=== PATIENT | female | born 1970 | race Caucasian/White ===

== ENCOUNTER → 2018-09-03 09:49 | Outpatient (CLI) | payer OTHER, SELFPAY ==
[2018-09-03 09:58] LABS: RBC Urine None Seen (0-5/HPF)
[2018-09-03 11:26] LABS: Add Manual Diff / Slide Review NO; Basophils Absolute Auto 100 /uL (0-100); Basophils Percent Auto 0.7 % (0-2); Eosinophils Absolute Auto 100 /uL (0-450); Eosinophils Percent Auto 1.9 % (2-4); Hematocrit 41.2 % (36-46); Hemoglobin 13.5 g/dL (12.0-16.0); Lymphocytes Absolute Auto 1800 /uL (1100-4500); Lymphocytes Percent Auto 23.2 % (25-40); Mean Corpuscular HGB Conc 32.8 % (30-36); Mean Corpuscular Volume 94.5 fL (80-100); Monocytes Absolute Auto 700 /uL (0-900); Monocytes Percent Auto 9.3 % (3-14); Neutrophils Absolute Auto 5100 /uL (1500-7000); Neutrophils Percent Auto 64.9 % (50-75); Platelet Count 266 X10^3/uL (150-400); Red Blood Cell Count 4.36 X10^6/uL (4.0-5.2); Red Cell Distribution Width 13.4 % (11.6-14.8); White Blood Cell Count 7.8 X10^3/uL (4.5-11.0)
[2018-09-03 11:38] LABS: Alanine Aminotransferase 244 IU/L (9-52); Albumin 4.3 g/dL (3.5-5.0); Albumin Globulin Ratio 1.2 (1.0-2.8); Alkaline Phosphatase 89 U/L (38-126); Aspartate Aminotransferase 172 IU/L (14-36); Bilirubin Total 0.6 mg/dL (0.2-1.3); Blood Urea Nitrogen 12 mg/dL (7-17); Calcium 8.9 mg/dL (8.4-10.2); Carbon Dioxide 28 mmol/L (22-32); Chloride 106 mmol/L (98-107); Cholesterol 189 mg/dL (140-199); Estimated Glomerular Filt Rate > 60.0 mL/min (>60); Globulin 3.7 g/dL (1.7-4.1); Glucose 100 mg/dL (70-100); HDL Cholesterol 55 mg/dL (40-60); HEMOLYSIS 18 (0-50); LDL Cholesterol Calculated 122 mg/dL (<100); Potassium 3.9 mmol/L (3.4-5.1); Sodium 143 mmol/L (137-145); Triglycerides 62 mg/dL (35-150)
[2018-09-03 12:47] LABS: Appearance Urine UA CLEAR; Bilirubin Urine UA NEGATIVE (NEGATIVE); Color Urine UA YELLOW; Glucose Urine UA NEGATIVE (Negative); Ketones Urine UA NEGATIVE (NEGATIVE); Leukocyte Esterase Urine UA TRACE (NEGATIVE); Nitrite Urine UA NEGATIVE (Negative); Occult Blood Urine UA NEGATIVE (Negative); Protein Urine UA NEGATIVE (Negative); Specific Gravity Urine UA 1.025 (1.000-1.035); Urobilinogen Urine UA 0.2 E.U./dL (0.2)
[2018-09-03 12:56] LABS: Bacteria Urine Few (2-10); Culture Indicated Urine Cult Not Indicated; Squamous Epithelial Cell Urine 5-10 /HPF; WBC Urine 1-5/HPF (0-5/HPF)
[2018-09-03 13:09] LABS: Vitamin D 25 Hydroxy (D3) 25.7 ng/mL (30.0-100.0)
== END ==
PROVIDERS: PCP Student in an Organized Health Care Education/Training Program; Visit Provider Student in an Organized Health Care Education/Training Program
DX: R10.9 Unspecified abdominal pain (principal); M17.0 Bilateral primary osteoarthritis of knee; Z13.220 Encounter for screening for lipoid disorders; E55.9 Vitamin D deficiency, unspecified
CPT/HCPCS: 36415; 80053; 80061; 81001; 82306; 85025

== ENCOUNTER → 2018-12-03 15:36 | Outpatient (CLI) | payer OTHER, SELFPAY ==
--- NOTE | 2018-12-03 | DI.RAD.S_ITS ---
PROCEDURE: XR KNEE LT 1TO2V INDICATIONS: BILATERAL OSTEOARTHRITIS TECHNIQUE: 2 views of the left knee were acquired. COMPARISON: [facility], [place], XR KNEE STANDING BI, 12/03/2018, 15:52. [facility], [place], KNEE 3V RIGHT, 02/01/2014, 10:01. FINDINGS: Bones: No fractures or dislocations. No suspicious bony lesions. Soft tissues: No joint effusion. No suspicious soft tissue calcifications. IMPRESSION: No significant degenerative changes. Dictated by: Amanda Gregory M.D. on 12/03/2018 at 16:35 Approved by: Amanda Gregory M.D. on 12/03/2018 at 16:36
--- NOTE | 2018-12-03 | DI.RAD.S_ITS ---
PROCEDURE: XR KNEE RT 1TO2V INDICATIONS: BILATERAL OSTEOARTHRITIS TECHNIQUE: 2 views of the knee were acquired. COMPARISON: [facility], , KNEE 3V RIGHT, 02/01/2014, 10:01. FINDINGS: Bones: No fractures or dislocations. No suspicious bony lesions. Soft tissues: Moderate-sized joint effusion. No suspicious soft tissue calcifications. IMPRESSION: Joint effusion. No bony abnormalities on the 2 given views. Dictated by: Amanda Gregory M.D. on 12/03/2018 at 16:37 Approved by: Amanda Gregory M.D. on 12/03/2018 at 16:38
--- NOTE | 2018-12-03 15:39 | DI.RAD.S_ITS ---
PROCEDURE: XR KNEE STANDING BI INDICATIONS: BILATERAL OSTEOARTHRITIS TECHNIQUE: One views of the right knee, and one views of the left knee. COMPARISON: [facility], , KNEE 3V RIGHT, 02/01/2014, 10:01. FINDINGS: Bones: No acute fractures or dislocations. Patellar alignment is normal on the sunrise view. No suspicious bony lesions. Joint spaces appear normal with weightbearing. Soft tissues: No suspicious soft tissue calcification. IMPRESSION: Symmetric maintenance of joint spaces. Dictated by: Amanda Gregory M.D. on 12/03/2018 at 16:37 Approved by: Amanda Gregory M.D. on 12/03/2018 at 16:37
== END ==
PROVIDERS: PCP Student in an Organized Health Care Education/Training Program; Visit Provider Physical Medicine & Rehabilitation
DX: M17.0 Bilateral primary osteoarthritis of knee (principal); M25.461 Effusion, right knee
CPT/HCPCS: 73560; 73565

== ENCOUNTER → 2019-02-10 14:30 | Outpatient (CLI) | payer OTHER, SELFPAY ==
[2019-02-10 15:38] LABS: Add Manual Diff / Slide Review NO; Basophils Absolute Auto 100 /uL (0-100); Basophils Percent Auto 0.7 % (0-2); Eosinophils Absolute Auto 200 /uL (0-450); Eosinophils Percent Auto 1.8 % (2-4); Hematocrit 39.1 % (36-46); Hemoglobin 13.3 g/dL (12.0-16.0); Lymphocytes Absolute Auto 2200 /uL (1100-4500); Lymphocytes Percent Auto 25.2 % (25-40); Mean Corpuscular HGB Conc 34.1 % (30-36); Mean Corpuscular Volume 90.9 fL (80-100); Monocytes Absolute Auto 800 /uL (0-900); Monocytes Percent Auto 9.1 % (3-14); Neutrophils Absolute Auto 5600 /uL (1500-7000); Neutrophils Percent Auto 63.2 % (50-75); Platelet Count 242 X10^3/uL (150-400); Red Blood Cell Count 4.31 X10^6/uL (4.0-5.2); Red Cell Distribution Width 13.4 % (11.6-14.8); White Blood Cell Count 8.8 X10^3/uL (4.5-11.0)
[2019-02-10 15:54] LABS: Alanine Aminotransferase 69 IU/L (9-52); Albumin 4.4 g/dL (3.5-5.0); Albumin Globulin Ratio 1.2 (1.0-2.8); Alkaline Phosphatase 111 U/L (38-126); Aspartate Aminotransferase 46 IU/L (14-36); Bilirubin Total 0.7 mg/dL (0.2-1.3); Bilirubin Unconjugated 0.5 mg/dL (0.0-1.1); C-Reactive Protein Quant 1.4 mg/dL (<1.0); Globulin 3.6 g/dL (1.7-4.1); HEMOLYSIS < 15 (0-50)
[2019-02-10 16:01] LABS: Erythrocyte Sedimentation Rate 40 MM/HR (0-20)
[2019-02-10 16:06] LABS: Free T4, Direct Thyroxine 1.24 ng/dL (0.78-2.19)
[2019-02-10 16:20] LABS: Thyroid Stimulating Hormone 1.74 uIU/mL (0.47-4.68)
[2019-02-12 19:36] LABS: ANA Screen, IFA Positive (Negative)
== END ==
PROVIDERS: PCP Student in an Organized Health Care Education/Training Program; Visit Provider Physical Medicine & Rehabilitation
DX: M25.50 Pain in unspecified joint (principal)
CPT/HCPCS: 36415; 80076; 84439; 84443; 85025; 85651; 86038; 86140

== ENCOUNTER → 2019-04-13 12:30 | Outpatient (CLI) | payer OTHER, SELFPAY ==
--- NOTE | 2019-04-13 12:32 | DI.US.S_ITS ---
PROCEDURE: US ABDOMEN LIMITED INDICATIONS: ELEVATE LFT'S ; RIGHT FLANK PAIN TECHNIQUE: Real-time scanning was performed of the abdominal and retroperitoneal organs, with image documentation. COMPARISON: None. FINDINGS: Liver: Liver is normal in size and homogeneous in echotexture. Gallbladder: There is no gallstone. No gallbladder wall thickening or pericholecystic fluid. No sonographic Soni's sign. Biliary ducts: Intrahepatic bile ducts are non-dilated. Extrahepatic bile duct caliber measures 5.9 mm. Normal is 6-7 mm or less in diameter, or 10 mm or less post-cholecystectomy. Pancreas: Visualized portions of the pancreas are sonographically normal. Kidneys: Right kidney measures 9.6 cm long. No hydronephrosis or nephrolithiasis. No solid masses. IMPRESSION: Unremarkable ultrasound examination of right upper quadrant abdomen. Dictated by: Arvind Kelley M.D. on 04/13/2019 at 14:55 Approved by: Arvind Kelley M.D. on 04/13/2019 at 14:56
== END ==
PROVIDERS: PCP Student in an Organized Health Care Education/Training Program; Visit Provider Student in an Organized Health Care Education/Training Program
DX: R10.9 Unspecified abdominal pain (principal)
CPT/HCPCS: 76705

== ENCOUNTER → 2019-04-28 11:34 | Outpatient (CLI) | payer OTHER, SELFPAY ==
[2019-04-28 13:33] LABS: Alanine Aminotransferase 64 IU/L (9-52); Albumin 4.1 g/dL (3.5-5.0); Albumin Globulin Ratio 1.5 (1.0-2.8); Alkaline Phosphatase 93 U/L (38-126); Aspartate Aminotransferase 43 IU/L (14-36); Bilirubin Total 0.5 mg/dL (0.2-1.3); Blood Urea Nitrogen 16 mg/dL (7-17); Calcium 9.5 mg/dL (8.4-10.2); Carbon Dioxide 25 mmol/L (22-32); Chloride 109 mmol/L (98-107); Estimated Glomerular Filt Rate > 60.0 mL/min (>60); Gamma Glutamyl Transpeptidase 32 U/L (12-43); Globulin 2.8 g/dL (1.7-4.1); Glucose 84 mg/dL (70-100); HEMOLYSIS < 15 (0-50); Potassium 4.1 mmol/L (3.4-5.1); Sodium 145 mmol/L (137-145); Total Protein 6.9 g/dL (6.3-8.2)
[2019-04-30 15:46] LABS: HLA B27 NEGATIVE (Negative)
== END ==
PROVIDERS: PCP Student in an Organized Health Care Education/Training Program; Visit Provider Student in an Organized Health Care Education/Training Program
DX: M45.9 Ankylosing spondylitis of unspecified sites in spine (principal); R76.8 Other specified abnormal immunological findings in serum; R10.11 Right upper quadrant pain; N14.1 Nephropathy induced by other drugs, medicaments and biological substances; R94.5 Abnormal results of liver function studies; T50.8X5A Adverse effect of diagnostic agents, initial encounter
CPT/HCPCS: 36415; 80053; 82977; 86812

== ENCOUNTER 2025-01-10 09:33 | Emergency (ER) | payer OTHER, SELFPAY ==
[2025-01-10] VITALS (9 sets, daily range): BP systolic 156–205; BP diastolic 80–123; PULSE 88–111; RESP 17–27; TEMP 37.1; O2SAT 95–98; BMI 47.2
--- NOTE | 2025-01-10 09:40 | DI.RAD.S_ITS ---
PROCEDURE: XR CHEST 1V INDICATIONS: Chest Pain TECHNIQUE: One view of the chest was acquired. COMPARISON: None. FINDINGS AND IMPRESSION: Probable anatomic variant right upper azygos fissure. No dense airspace disease or pleural effusion on this single view study. Borderline cardiomegaly. Degenerative osseous changes. Dictated by: Cristopher Larios M.D. on 01/10/2025 at 10:00 Approved by: Cristopher Larios M.D. on 01/10/2025 at 10:01
--- NOTE | 2025-01-10 09:42 | EKG_ITS ---
[address] [address] Test Date: 2025-01-10 Pat Name: Murray Jacome Department: Room: Gender: Female Administrative Liaison: NIKKO : 1970 Requested By: Order Number: [id number] Reading MD: Rony San Measurements Intervals [place] Rate: 97 P: 44 NC: 146 QRS: 22 QRSD: 78 T: 42 QT: 344 QTc: 436 Interpretive Statements Normal sinus rhythm Electronically Signed On 01-10-2025 15:31:21 PDT by Rony San
[2025-01-10 10:07] LABS: Add Manual Diff / Slide Review NO; Basophils Absolute Auto 0 /uL (0-100); Basophils Percent Auto 0.5 % (0-2); Eosinophils Absolute Auto 100 /uL (0-450); Eosinophils Percent Auto 1.3 % (2-4); Hematocrit 40.2 % (36-46); Hemoglobin 13.7 g/dL (12.0-16.0); Lymphocytes Absolute Auto 1900 /uL (1100-4500); Lymphocytes Percent Auto 21.7 % (25-40); Mean Corpuscular HGB Conc 34.2 % (30-36); Mean Corpuscular Hemoglobin 31.9 PG (26-34); Mean Corpuscular Volume 93.3 fL (80-100); Monocytes Absolute Auto 700 /uL (0-900); Monocytes Percent Auto 7.8 % (3-14); Neutrophils Absolute Auto 6100 /uL (1500-7000); Neutrophils Percent Auto 68.7 % (50-75); Platelet Count 205 X10^3/uL (150-400); Red Blood Cell Count 4.31 X10^6/uL (4.0-5.2); Red Cell Distribution Width 13.6 % (11.6-14.8); White Blood Cell Count 8.8 X10^3/uL (4.5-11.0)
--- NOTE | 2025-01-10 10:10 | PC.NURSE ---
Started IV on pt, blood drawn. Pt reports burning sensation at IV site. Pt visibly upset and wants IV removed. IV taken from arm. notified.
--- NOTE | 2025-01-10 10:10 | EKG_ITS ---
[address] [address] Test Date: 2025-01-10 Pat Name: Murray Jacome Department: Room: Gender: Female Rn Lactation Consultant: KARMEN : 1970 Requested By: Order Number: [id number] Reading MD: Rony San Measurements Intervals [place] Rate: 88 P: 45 [place]: 146 QRS: 20 QRSD: 78 T: 36 QT: 342 QTc: 413 Interpretive Statements Normal sinus rhythm Electronically Signed On 01-10-2025 15:31:25 PDT by Rony San
[2025-01-10 10:13] LABS: INR 0.9 (0.9-1.3); Prothrombin Time 10.7 SECONDS (9.4-12.5)
[2025-01-10 10:15] LABS: PTT Partial Thromboplastin Tim 31 SECONDS (25.1-36.5)
[2025-01-10 10:17] LABS: Alanine Aminotransferase 76 IU/L (<35); Albumin 4.2 g/dL (3.5-5.0); Albumin Globulin Ratio 1.2 (1.0-2.8); Alkaline Phosphatase 102 U/L (38-126); Aspartate Aminotransferase 49 IU/L (14-36); BUN Creatinine Ratio 40.4 (6-22); Bilirubin Total 0.6 mg/dL (0.2-1.3); Blood Urea Nitrogen 21 mg/dL (7-17); Calcium 9.1 mg/dL (8.4-10.2); Carbon Dioxide 23 mmol/L (22-32); Chloride 108 mmol/L (98-107); Creatine Kinase 39 U/L (30-135); Estimated Glomerular Filt Rate > 60 mL/min (>60); Globulin 3.5 g/dL (1.7-4.1); Glucose 118 mg/dL (70-99); HEMOLYSIS < 15 (0-50); Lipase 104 U/L (23-300); Magnesium 2.1 mg/dL (1.6-2.3); Potassium 4.4 mmol/L (3.4-5.1); Sodium 139 mmol/L (137-145); Total Protein 7.7 g/dL (6.3-8.2)
--- NOTE | 2025-01-10 10:17 | PC.NURSE ---
Pt 10-15 second run of SVT. Pt states that she feels like there is pain in her left neck and chest. Repeat EKG done. Pt refusing new IV placement. Dr Do notified of pt status. No new orders at this time.
--- NOTE | 2025-01-10 10:18 | ED_ITS ---
HPI - General Adult General Chief complaint: Hypertension Stated complaint: arm pain. high blood pressure Time Seen by Provider: 01/10/25 10:17 History of Present Illness HPI narrative: 54-year-old female with no known history of coronary artery disease, complains of right anterior shoulder and trapezius area discomfort since this morning, some radiation to her distal right arm, also right lateral chest. No trauma fall new activities. She had called 911 earlier, then refused transport, arrival by POV with the assistance of neighbor. She was given aspirin by EMS, she has not tried any other treatments. Right shoulder and trapezius area pain is worse with movements. Related Data Home Medications Medication Instructions Recorded Confirmed No Known Home Medications 04/01/19 04/28/19 Allergies Allergy/AdvReac Type Severity Reaction Status Date / Time No Known Drug Allergies Allergy Verified 04/28/19 11:06 Patient History Medical History (Updated 01/10/25 @ 11:45 by Rudy Do MD) Vaginal delivery Abnormal Pap smear of cervix Surgical History History of tonsillectomy Status post tubal ligation Family History Mother Ovarian cancer Exam Narrative Exam Narrative: GENERAL: Well-developed patient, in mild distress. HEAD: Atraumatic. Normocephalic. EYES: Pupils equal round and reactive. Extraocular motions intact. No scleral icterus. No injection or drainage. ENT: Nose without bleeding, purulent drainage. Throat without erythema, tonsillar hypertrophy or exudate. Airway patent. NECK: Trachea midline. Non tender CARDIOVASCULAR: Regular rate and rhythm without murmurs, gallops, or rubs. RESPIRATORY: Clear to auscultation. Breath sounds equal bilaterally. No wheezes, rales, or rhonchi. No chest wall discomfort. GASTROINTESTINAL: Abdomen soft, non-tender, nondistended. EXTREMITIES: Some tenderness right superior trapezius and right anterior shoulder, can flex and extend 45? with her shoulder, worse pain with attempted movements and on palpation. No skin changes rash redness abrasion changes. BACK: Nontender without deformity or crepitance. No flank tenderness. NEURO: AOx3. Motor functions grossly nonfocal SKIN: No rash or erythema of visible areas Initial Vital Signs Initial Vital Signs: Vital Signs Pulse Rate 111 H 05/26/25 09:38 Blood Pressure 205/98 H 01/10/25 09:38 Pulse Oximetry 97 01/10/25 09:38 Course Orders Ordered: ED Orders 01/10/25 09:55 Complete Blood Count AUTO DIFF Stat Comprehensive Metabolic Panel Stat Lipase Stat Magnesium Stat NT-proBNP (BNP-Adult 18+) Stat PTT Partial Thromboplastin Judd Stat Prothrombin Time INR Stat Troponin & CK Cardiac Panel Stat 01/10/25 10:10 EKG-12 Lead Routine Discontinued Medications Aspirin (Aspirin 81 Mg Chew Tab) 324 mg PO NOW ONE Stop: 01/10/25 09:41 Last Admin: 01/10/25 10:30 Dose: Not Given Documented By: Ketorolac Tromethamine (Ketorolac 30 Mg/Ml Vial) 15 mg IV NOW ONE Stop: 01/10/25 10:32 Last Admin: 01/10/25 10:39 Dose: 15 mg Documented By: Labetalol HCl (Labetalol 20 Mg/4 Ml Syringe) 10 mg IV NOW ONE Stop: 01/10/25 10:19 Last Admin: 01/10/25 10:31 Dose: Not Given Documented By: Vital Signs Vital signs: Vital Signs - 8 hr 01/10/25 11:00 01/10/25 11:00 01/10/25 11:30 Pulse Rate 95 H Respiratory Rate 22 Blood Pressure 162/91 H 156/80 H Pulse Oximetry 95 Oxygen Delivery Method 01/10/25 11:30 Pulse Rate 88 Respiratory Rate 17 Blood Pressure Pulse Oximetry 95 Oxygen Delivery Method Room Air Medical Decision Making Lab Data Lab results reviewed: Yes I reviewed the patient's lab results. Lab results narrative: White blood cell count 8800, hemoglobin 13.7, platelets adequate. Glucose 118. BUN 21 with creatinine 0.52. Normal sodium and potassium. Serum CO2 23 normal. Slight transaminitis, T bili and alk phos normal. Lipase 104. 01/10/25 09:55 01/10/25 09:55 Labs: Lab Results 01/10/25 Range/Units 09:55 WBC 8.8 (4.5-11.0) X10^3/uL RBC 4.31 (4.0-5.2) X10^6/uL Hgb 13.7 (12.0-16.0) g/dL Hct 40.2 (36-46) % MCV 93.3 (80-100) fL MCH 31.9 (26-34) PG MCHC 34.2 (30-36) % RDW 13.6 (11.6-14.8) % Plt Count 205 (150-400) X10^3/uL Neut % (Auto) 68.7 (50-75) % Lymph % (Auto) 21.7 L (25-40) % [place] % (Auto) 7.8 (3-14) % Eos % (Auto) 1.3 L (2-4) % Baso % (Auto) 0.5 (0-2) % Neut # (Auto) 6100 (0822-9437) /uL Lymph # (Auto) 1900 (1467-0898) /uL [place] # (Auto) 700 (0-900) /uL Eos # (Auto) 100 (0-450) /uL Baso # (Auto) 0 (0-100) /uL PT 10.7 (9.4-12.5) SECONDS INR 0.9 (0.9-1.3) APTT 31 (25.1-36.5) SECONDS Sodium 139 (137-145) mmol/L Potassium 4.4 (3.4-5.1) mmol/L Chloride 108 H (98-107) mmol/L Carbon Dioxide 23 (22-32) mmol/L BUN 21 H (7-17) mg/dL Creatinine 0.52 (0.52-1.04) mg/dL Estimated GFR > 60 (>60) mL/min BUN/Creatinine Ratio 40.4 H (6-22) Glucose 118 H (70-99) mg/dL Calcium 9.1 (8.4-10.2) mg/dL Magnesium 2.1 (1.6-2.3) mg/dL Total Bilirubin 0.6 (0.2-1.3) mg/dL AST 49 H (14-36) IU/L ALT 76 H (<35) IU/L Alkaline Phosphatase 102 (38-126) U/L Total Creatine Kinase 39 (30-135) U/L Troponin I < 0.012 (0.01-0.034) ng/mL NT-Pro-B Natriuret Pep 34 (<125) pg/mL Total Protein 7.7 (6.3-8.2) g/dL Albumin 4.2 (3.5-5.0) g/dL Globulin 3.5 (1.7-4.1) g/dL Albumin/Globulin Ratio 1.2 (1.0-2.8) Lipase 104 (23-300) U/L ECG Data Attestation: I personally reviewed and interpreted this ECG as follows: Interpretation: Normal sinus rhythm with rate of 97, no obvious ST segment elevation or depression changes. PA of 146, QRS 78, QTC 436. MDM Narrative Medical decision making narrative: 54-year-old female woke up with right shoulder and trapezius area discomfort, some tenderness on examination, refused EMS transport at her home, was given aspirin, came by POV, has some tenderness to the shoulder left anterior and superior trapezius. She does not want sedating medications opiates muscle relaxants. Okay with trying IV Toradol, ordered. Screening EKG unremarkable. Chest x-ray unremarkable. Labs sent from triage are pending. Studies unremarkable. Symptoms improved with Toradol. Screening labs unremarkable. Patient elects to go home. Advised use of [id number] analgesics as needed. Follow up with PCP if not improved in the next few days. Return precautions discussed. Discharged home with family. Discharge Plan Departure Patient Disposition: Home Clinical Impression: Right shoulder strain, Strain of right trapezius muscle Activity Restrictions/Additional Instructions: Right anterior shoulder and superior trapezius muscle area discomfort, on examination seems consistent with musculoskeletal cause. Screening EKG and blood work unremarkable. You felt better after pre-hospital aspirin and IV dose of Toradol. Consider [id number] Tylenol and or Motrin as needed for pain control. Recheck symptoms if persistent in the next couple of days with the regular doctor. Return to this/nearest emergency department for any change worsening symptoms or any concerns prior. Prescriptions: No Action No Known Home Medications Stand Alone Forms: Patient Portal/API/Survey
[2025-01-10 10:29] LABS: NT-proBNP (BNP-Adult 18+) 34 pg/mL (<125); Troponin I < 0.012 ng/mL (0.01-0.034)
[2025-01-10] MEDS: KETOROLAC 30 MG/ML VIAL 15 MG IV (10:39)
--- NOTE | 2025-01-10 11:15 | PC.NURSE ---
Pt reports feeling much better. MD notified.
== END 2025-01-10 11:59 | disposition home or self-care (01) ==
PROVIDERS: Emergency Provider Emergency Medicine
DX: S46.911A Strain of unspecified muscle, fascia and tendon at shoulder and upper arm level, right arm, initial encounter (principal); S46.811A Strain of other muscles, fascia and tendons at shoulder and upper arm level, right arm, initial encounter; R07.9 Chest pain, unspecified; I10 Essential (primary) hypertension
CPT/HCPCS: 71045; 80053; 82550; 83690; 83735; 83880; 84484; 85025; 85610; 85730; 93005; 96374; 99284; J1885